=== PATIENT | female | born 1980 | race African-American/Black ===

== ENCOUNTER 2018-06-27 18:10 | Emergency (ER) | payer SELFPAY ==
[~2018-06-27] VITALS: Ht 170.2 cm; Wt 77.0 kg
[2018-06-27] MEDS ORDERED: BACITRACIN ZINC OINT UDPKT TOP ONE (19:00)
[2018-06-27] MEDS ORDERED: HYDROCODONE/ACETAMINOPHEN 5/325MG TABLET PO ONE (19:00)
[2018-06-27] MEDS ORDERED: LIDOCAINE HCL/PF 1% 10 MG/ML 5ML VIAL IJ ONE (19:00)
[2018-06-27 21:17] VITALS: BP 116/85
== END 2018-06-27 21:19 | disposition home or self-care (01) ==
LOC: ER 18:10
DX: S81.011A Laceration without foreign body, right knee, initial encounter (principal); S93.492A Sprain of other ligament of left ankle, initial encounter; Z98.890 Other specified postprocedural states; V00.831A Fall from motorized mobility scooter, initial encounter; Y93.89 Activity, other specified; Y92.89 Other specified places as the place of occurrence of the external cause
CPT/HCPCS: 12002; 73562; 73610; 81025; 93005; 99283; J3490; Z7610

== ENCOUNTER 2018-07-08 10:29 | Emergency (ER) | payer SELFPAY ==
[~2018-07-08] VITALS: Ht 172.7 cm; Wt 77.0 kg
[2018-07-08 10:46] VITALS: BP 112/66
== END 2018-07-08 12:36 | disposition home or self-care (01) ==
LOC: ER 10:29
DX: Z48.02 Encounter for removal of sutures (principal)
CPT/HCPCS: 99283